=== PATIENT | female | born 1965 | race Caucasian/White ===

== ENCOUNTER 2022-09-19 14:35 | Emergency (ER) | payer MEDICARE ==
[2022-09-19] MEDS ORDERED: Sodium Chloride 0.9% 1,000 ML IV ONE ×2 (15:02→16:48)
[2022-09-19] MEDS ORDERED: Sodium Chloride 0.9% 10 ML Syringe FLUSH PRN (15:19)
[2022-09-19 15:43] LABS: BASOPHILS ABSOLUTE AUTO 0.01 K/mm3 (0.01-0.08); BASOPHILS PERCENT AUTO 0.1 % (0.1-1.2); EOSINOPHILS ABSOLUTE AUTO 0.01 K/mm3 (0.04-0.36); EOSINOPHILS PERCENT AUTO 0.1 (0.7-5.8); HEMATOCRIT 40.3 % (34.1-44.9); HEMOGLOBIN 13.1 gm/dl (11.2-15.7); IMMATURE GRAN ABSOLUTE AUTO 0.03 K/mm3 (0.00-0.10); IMMATURE GRAN PERCENT AUTO 0.3 % (<=1.0); LYMPHOCYTES ABSOLUTE AUTO 0.37 K/mm3 (1.18-3.74); LYMPHOCYTES PERCENT AUTO 4.2 % (19.3-51.7); MEAN CORPUSCULAR HEMOGLOBIN 30.5 pg (25.6-32.2); MEAN CORPUSCULAR HGB CONC 32.5 g/dl (32.2-35.5); MEAN CORPUSCULAR VOLUME 93.7 fl (79.4-94.8); MEAN PLATELET VOLUME 8.6 fl (9.4-12.3); MONOCYTES ABSOLUTE AUTO 0.05 K/mm3 (0.24-0.36); MONOCYTES PERCENT AUTO 0.6 % (4.7-12.5); NEUTROPHILS ABSOLUTE AUTO 8.42 K/mm3 (1.56-6.13); NEUTROPHILS PERCENT AUTO 94.7 % (34.0-71.1); PLATELET COUNT,PLT 133 K/mm3 (182-369); WHITE BLOOD CELL COUNT,WBC 8.89 K/mm3 (3.98-10.04)
[2022-09-19 16:02] LABS: INR 1.01; PROTHROMBIN TIME 10.8 SECONDS (9.7-12.0)
[2022-09-19 16:03] LABS: A/G RATIO 0.9 (1-2); ALBUMIN 3.5 g/dl (3.4-5.0); ANION GAP 12.9 (5-15); BUN/CREATININE RATIO 15.6 (14-18); CREATININE 0.9 mg/dL (0.55-1.02); EST CRCL DRUG DOSING (CG) 64.56 mL/min; POTASSIUM,K 2.9 mEq/L (3.5-5.1); PROTEIN TOTAL,TP 7.5 g/dl (6.4-8.2)
[2022-09-19 16:08] LABS: LACTIC ACID 1.3 mmol/L (0.4-2.0)
[2022-09-19] MEDS ORDERED: Potassium Chloride 20 MEQ Tab.ER PO ONE ×2 (16:08→19:34)
[2022-09-19 16:21] LABS: SLIDE REVIEW ABNORMAL SMEAR
[2022-09-19] MEDS ORDERED: Magnesium Sulfate/Water 2 GM in Premix Bag 1 BAG IV ONE (16:49)
[2022-09-19 17:35] LABS: APPEARANCE,URINE CLOUDY (Clear); BILIRUBIN,URINE NEGATIVE (Negative); COLOR,URINE AMBER (Yellow); GLUCOSE,URINE NEGATIVE (Negative); KETONES,URINE 1+ (Negative); LEUKOCYTE ESTERASE,URINE 1+ (Negative); NITRITE,URINE POSITIVE (Negative); OCCULT BLOOD,URINE 2+ (Negative); PROTEIN,URINE 2+ (Negative); UROBILINOGEN,URINE 0.2 (0.2-1.0)
[2022-09-19] MEDS ORDERED: cefTRIAXone 2 GM in Sodium Chloride 0.9% 100 ML IV ONE (17:46)
[2022-09-19 17:53] LABS: SQUAMOUS EPITHELIAL CELLS,UR 0-5 /hpf (0-5); WBC,URINE 50-75 /hpf (0-5)
[2022-09-19 17:54] LABS: BACTERIA,URINE MANY /hpf (FEW); MUCUS,URINE RARE /hpf (FEW)
[2022-09-19] MEDS ORDERED: Ketorolac 30 MG/ML SDV IVPUSH ONE (19:27)
== END 2022-09-19 20:26 | disposition home or self-care (01) ==
LOC: JD.ED 14:35
DX: N30.01 Acute cystitis with hematuria (principal); Z88.5 Allergy status to narcotic agent; Z79.899 Other long term (current) drug therapy
CPT/HCPCS: 36415; 71045; 71045-26; 80053; 81001; 83605; 83735; 85025; 85610; 86140; 87040; 87077; 87086; 87088; 87154; 87186; 96365; 96366; 96367; 96375; 99284; 99284-25; A9270-GY; J0696; J1885; J3475; J3490; J7030